=== PATIENT | female | born 1985 | race Caucasian/White ===

== ENCOUNTER 2024-01-20 06:24 | Day surgery (SDC) | payer OTHER, SELFPAY ==
[2024-01-20 06:55] VITALS: BP 112/82
[2024-01-20 07:00] VITALS: BMI 24.9
[2024-01-20] MEDS: TYLENOL 1000 MG PO (07:11)
[2024-01-20 07:22] VITALS: BMI 24.9
[2024-01-20 07:58] VITALS: BP 116/65
[2024-01-20 08:00] VITALS: BP 114/71
--- NOTE | 2024-01-20 08:11 | OR.RPT ---
Addendum entered and electronically signed by Lonnie Hidalgo MD 01/20/24 11:06:
The assistance of Sachi MILLS was required due to the complexity of the procedure. During the procedure she assisted with retraction, resection, and closure of the wound.
Original Note:
Operative Report
Operative Report
Primary Surgeon: Gwen
Assisting: Sachi MILLS
Pre-op Diagnosis: Skin lesion
Post-op Diagnosis: Same
Procedure Performed: Excision of skin lesion
Anesthesia Type: MAC local
Specimen / Cultures: Skin lesion
Estimated Blood Loss: 2cc
Complications: None immediate
Operative Findings: 3x1cm area of skin excised encompassing the area of skin changes
Date of Surgery: 01/20/24
Indications: This 38F developed a symptomatic umbilical hernia and open repair was elected.
PROCEDURE: After informed consent was obtained, the patient was marked and then brought to the operative suite and placed supine on the operating table. The patient was sedated, prepped and draped in the usual sterile manner and an adequate local
anesthetic was administered using lidocaine with epinephrine.
A full thickness elliptical incision was made around the affected area with a #15 blade. The incision as carried down to the subcutaneous layer with electrocautery. The affected skin was elevated and undermined with electrocautery and ultimately
excised in toto, then passed off the table as specimen. Hemostasis was assured with electrocautery. The skin was approximated with 3-0 Vicryl deep dermal interrupted sutures and 4-0 monocryl suture in a subcuticular fashion. Topical skin glue was
then applied. All surgical counts were reported as correct.
The patient tolerated the procedure well and was taken to the PACU in stable condition.
[2024-01-20 08:15] VITALS: BP 118/68
[2024-01-20 08:30] VITALS: BP 108/74
[2024-01-20 08:45] VITALS: BP 116/72
== END 2024-01-20 08:55 | disposition home or self-care (01) ==
LOC: SDS 06:24
PROVIDERS: ATTENDING PHYSICIAN Surgery
DX: K42.9 Umbilical hernia without obstruction or gangrene (principal); L72.0 Epidermal cyst
CPT/HCPCS: 49591; 27047; 88304